=== PATIENT | female | born 1965 | race African-American/Black ===

== ENCOUNTER 2017-06-11 09:07 | Observation (INO) | payer BC ==
[~2017-06-11] VITALS: Ht 154.9 cm; Wt 68.8 kg
[2017-06-11] VITALS (14 sets, daily range): BP systolic 114–138; BP diastolic 77–98; PULSE 70–88; RESP 14–36; Ht 154.9 cm; Wt 68.8 kg
[~2017-06-11 09:07] MED LIST: CEFAZOLIN 1 GM INJ ONE
[2017-06-11] MEDS ORDERED: HYDR25TA6 PO (09:55)
[2017-06-11] MEDS ORDERED: ASPI-664 PO (09:56)
[2017-06-11] MEDS ORDERED: LOSA25TA5 PO (09:56)
[2017-06-11] MEDS ORDERED: CHOL200073 PO (09:57)
[2017-06-11 12:37] LABS: BASOPHILS % 0.5 % (0.0-2.0); EOSINOPHILS # 0.2 10^3/ul (0.0-0.5); EOSINOPHILS % 2.4 % (0.0-7.0); HEMATOCRIT 40.2 % (37.0-47.0); HEMOGLOBIN 13.7 g/dl (12.0-16.0); LYMPHOCYTES # 1.7 10^3/ul (0.8-2.9); LYMPHOCYTES % 26.7 % (15.0-51.0); MEAN CORPUSCULAR HEMOGLOBIN 31.9 pg (29.0-33.0); MEAN CORPUSCULAR HGB CONC 34.1 g/dl (32.0-37.0); MEAN CORPUSCULAR VOLUME 93.5 fl (82.0-101.0); MEAN PLATELET VOLUME 9.9 fl (7.4-10.4); MONOCYTE # 0.5 10^3/ul (0.3-0.9); MONOCYTES % 7.7 % (0.0-11.0); NEUTROPHIL # 3.9 10^3/ul (1.6-7.5); NEUTROPHILS % 62.4 % (39.0-77.0); PLATELET COUNT 321 10^3/UL (140-415); RED CELL DISTRIBUTION WIDTH 12.6 % (11.5-14.5); WHITE BLOOD COUNT 6.2 10^3/ul (4.8-10.8)
--- NOTE | 2017-06-11 12:39 | RADRPT ---
PROCEDURE: Chest x-ray CLINICAL INDICATION: Preop TECHNIQUE: Chest single view COMPARISON: None FINDINGS: The heart is normal in size. The pulmonary vessels are normal in caliber. The lungs are clear. Th e costophrenic angles are sharp. The visualized bony thorax is unremarkable. Incidental note is mad e of 2 wires overlying the right breast IMPRESSION: No acute cardiopulmonary disease. RPTAT: HH .Donald Donato MD, MD Date Time Electronically viewed and signed by .Donald Donato MD, on 06/11/2017 12:39 .W/
[2017-06-11 12:52] LABS: INR 0.93; PARTIAL THROMBOPLASTIN TIME 25.8 Sec (25.0-35.0); PROTIME 12.5 Sec (12.2-14.2)
[2017-06-11 12:53] LABS: ALBUMIN/GLOBULIN RATIO 1.33; BILIRUBIN,INDIRECT 0.6 mg/dl (0-1.1); BILIRUBIN,TOTAL 0.6 mg/dl (0.2-1.3)
[2017-06-11 12:54] LABS: CALCIUM 9.8 mg/dl (8.4-10.2); CREATININE 0.92 mg/dl (0.44-1.00); POTASSIUM 4.9 mmol/L (3.5-5.1)
[2017-06-11] MEDS ORDERED: FENTAnyl 50 MCG/ML VIAL ONE ×2 (13:38→14:43)
[2017-06-11] MEDS ORDERED: MIDAZOLAM 1 MG/ML 2 ML INJ ONE (13:38)
[2017-06-11] MEDS ORDERED: PROPOFOL 20 ML ONE (13:38)
[2017-06-11] MEDS ORDERED: ISOSULFAN BLUE 1% 5 ML INJ SC ONE (13:52)
[2017-06-11] MEDS ORDERED: MEPERIDINE 25 MG INJ IV PRN (14:00)
[2017-06-11] MEDS ORDERED: ONDANSETRON 4 MG INJ IV PRN (14:00)
[2017-06-11] MEDS ORDERED: LABETALOL HCL 20MG INJ IV PRN (14:00)
[2017-06-11] MEDS ORDERED: morphine (1 MG/ML) 10ML SYRINGE IV PRN ×3 (14:00)
[2017-06-11] MEDS ORDERED: EPHEDrine SULFATE 50 MG/5 ML SYG IV PRN (14:00)
[2017-06-11] MEDS ORDERED: hydrALAzine 20 MG INJ IV PRN ×2 (14:00→17:00)
[2017-06-11] MEDS ORDERED: FENTAnyl 50 MCG/ML VIAL IV PRN ×2 (14:00)
[2017-06-11] MEDS ORDERED: DIPHENHYDRAMINE 50 MG INJ IV PRN (14:00)
[2017-06-11] MEDS ORDERED: LABETALOL HCL 20MG INJ ONE (15:23)
[2017-06-11] MEDS ORDERED: DEXTROSE 50% 50 ML SYRINGE ONE (15:23)
[2017-06-11] MEDS ORDERED: METOCLOPRAMIDE 10 MG INJ ONE (15:23)
[2017-06-11] MEDS ORDERED: ONDANSETRON 4 MG INJ ONE (15:23)
[2017-06-11] MEDS ORDERED: DEXAMETHASONE 4 MG/ML 1 ML INJ ONE (15:23)
[2017-06-11] MEDS ORDERED: SUGAMMADEX SODIUM 200 MG/2 ML VIAL IV ONE (15:51)
--- NOTE | 2017-06-11 16:04 | SIPON ---
Date/Time of Note Date/Time of Note DATE: 06/11/17 TIME: 16:01 Operative Report Preoperative Diagnosis Invasive cancer right breast Postoperative Diagnosis Same Operation/Procedure Performed Needle directed right partial mastectomy and axillary dissection utilizing sentinel lymph node technique Surgeon see signature line graphic design assistant Dr Workman Anesthesia: general Estimated blood loss: 50 - 100 ml's Transfusion Required none Specimen Right breast partial mastectomy specimen and axillary contents Grafts/Implants none Complications none IFEANYI MANZANO MD Jun 11, 2017 16:04
[2017-06-11] MEDS: FENTAnyl 50 MCG/ML VIAL IV PRN ×2 (16:07→16:15)
--- NOTE | 2017-06-11 16:32 | HP ---
Date/Time of Note Date/Time of Note DATE: 06/11/17 TIME: 16:28 Assessment/Plan VTE Prophylaxis VTE Prophylaxis Intervention: SCD's Assessment/Plan Assessment/Plan Invasive cancer right breast, status post partial right partial mastectomy and axillary dissection utilizing sentinel lymph node technique by Dr. Mercado. Continue Norcko and Morphine for pain. Hypertension Tobacco dependence Hx Stroke Further recommendations based on clinical course. Plan of care discussed with Dr. Reyna HPI/ROS Admit Date/Time Admit Date/Time Hx of Present Illness The patient is a 52-year-old female with hx of stroke and HTN . Patient underwent screening mammography and ultrasonography which revealed a very suspicious mass approximately 2.5 to 3 cm in diameter in the upper outer quadrant of the right breast. Core biopsy revealed an invasive cancer. Tumor is ER positive, [place] positive and HER-2 negative. Pt was evaluated by Dr Mercado is surgical consultation. Pt is underwent partial right partial mastectomy and axillary dissection utilizing sentinel lymph node technique. Postoperatively was in pain, and patient admitted for further management. PMH/Family/Social Past Medical History Depression, stroke Medical History: hypertension Past Surgical History Status post hysterectomy in 2011 Family History Significant Family History: cancer (Colorectal cancer in patient's mother) Social History Smoking Status: Former smoker Exam/Review of Systems Vital Signs Vitals Vital Signs Date Time Temp Pulse Resp B/P Pulse Ox O2 Delivery O2 Flow Rate FiO2 06/11/17 16:08 97.9 06/11/17 16:00 78 14 136/87 96 Mask Exam Constitutional: alert, oriented Neck: supple Respiratory: normal air movement Cardiovascular: nl pulses Gastrointestinal: non-tender, soft Musculoskeletal: nl extremities to inspection Extremities: normal pulses Skin: nl turgor, other (Status post right partial mastectomy) Labs Result Diagram: 06/11/17 1220 06/11/17 1220 VICKY RAMIREZ Jun 11, 2017 16:32
[2017-06-11] MEDS ORDERED: HYDROCODONE/APAP (10/325) TAB PO ONE (17:00)
--- NOTE | 2017-06-11 17:42 | OPR ---
DATE OF OPERATION: 06/11/2017 PREOPERATIVE DIAGNOSIS: Invasive cancer, right breast. POSTOPERATIVE DIAGNOSIS: Invasive cancer, right breast. PROCEDURE: Needle-directed right partial mastectomy with axillary dissection utilizing sentinel lym ph node technique. ANESTHESIA: General. ANESTHESIOLOGIST: Dr. Daly. SURGEON: Robinson Mercado MD MINK SLICER: Dr. Rafa Flower. INDICATIONS FOR PROCEDURE: The patient is a 52-year-old female. She underwent screening mammograph y and ultrasonography. Found have a very suspicious mass approximately 2.5 to 3 cm in diameter in t he upper outer quadrant of the right breast. Core biopsy revealed an invasive cancer. She was coun seled as to the risks versus benefits of surgery. She consented and was scheduled for surgery. DESCRIPTION OF PROCEDURE: On the morning of surgery, the patient presented to [facility] where she underwent localization of the lesion performed by attending radiologis t, Dr. Leonora Spears. Subsequently, she was brought to the operating theater, placed under general end otracheal anesthesia. The right breast and axillary region was prepped and draped in the usual ster ile fashion. Approximately 4 mL of 1% Lymphazurin blue dye was then injected peritumorally. The br east was gently massaged for approximately 12 minutes. At this point, a 4 to 5 cm incision was made in the right axillary hairline. A significant amount of subcutaneous adipose tissue was dissected with cautery down to the clavipectoral fascia. Clavipectoral fascia was incised, and a dye-stained lymphatic was traced to a sentinel lymph node. It appeared to be enlarged. There were several othe r lymph nodes in this area. Based on this, Dr. Mercado made the decision to proceed with axillary dis section with blunt dissection along the chest wall. The long thoracic nerve was identified and kept out of harm's way. More superiorly, the axillary vein was identified and dissected from medial to lateral. The thoracodorsal neurovascular bundle was identified and dissected throughout its course, kept out of harm's way. Node-bearing tissue between the 2 nerves was then meticulously harvested u sing the LigaSure device. The specimen was removed and sent for permanent pathologic analysis. The wound was irrigated. Minimal bleeding was controlled with cautery. A #10 flat Juan-Luciano drain was then brought through the right mid axillary line, cut to size and laid within the axilla. It w as secured in place with a 2-0 nylon suture in the standard fashion, and the skin incision was reapp roximated with 4-0 Vicryl suture in subcuticular fashion. Attention was then directed to performing the partial mastectomy. A curvilinear incision was made i n the upper outer quadrant of the right breast in the region of the previously placed localization w ires. Subcutaneous tissue was dissected with cautery. Skin edges were elevated with skin hooks and wide circumferential dissection of tissue associated with the mass took place down to the pectorali s major fascia. The mass was then elevated, transected, oriented and sent for radiographic confirma tion of capture. Capture was confirmed. The wound was irrigated. Minimal bleeding was controlled with cautery. Due to the large defect, Dr. Mercado made the decision to place a drain within this wou nd cavity. A #10 flat Juan-Luciano drain was brought through the right mid axillary line. It was cut to size and laid within the wound cavity. It was secured in place with 2-0 nylon suture in the standard fashion, and the skin was then reapproximated with 4-0 Vicryl suture in subcuticular fashio n. Benzoin was applied to both incisions. The patient tolerated the procedure well. The total blo od loss was approximately 100 mL. There were no complications, and the patient was transported in s table condition to recovery room where a circumferential compression dressing was applied. Dictated By: ROBINSON MERCADO MD TL/GENE Conf#: [id number] DID#: [id number] CC: RAFA FLOWER MD;*EndCC*
[2017-06-11] MEDS: HYDROCODONE/APAP (7.5/325) TAB PO PRN (23:52)
[2017-06-12 02:10] VITALS: BP 115/76; RESP 20
[2017-06-12] MEDS: IBUPROFEN 400 MG TAB PO PRN ×3 (03:45→16:28)
[2017-06-12 06:19] LABS: BASOPHILS % 0.1 % (0.0-2.0); EOSINOPHILS % 0.4 % (0.0-7.0); HEMATOCRIT 34.9 % (37.0-47.0); HEMOGLOBIN 11.9 g/dl (12.0-16.0); LYMPHOCYTES % 11.4 % (15.0-51.0); MEAN CORPUSCULAR HEMOGLOBIN 32.6 pg (29.0-33.0); MEAN CORPUSCULAR HGB CONC 34.1 g/dl (32.0-37.0); MEAN CORPUSCULAR VOLUME 95.6 fl (82.0-101.0); MEAN PLATELET VOLUME 10.5 fl (7.4-10.4); MONOCYTE # 0.7 10^3/ul (0.3-0.9); MONOCYTES % 8.5 % (0.0-11.0); NEUTROPHIL # 6.6 10^3/ul (1.6-7.5); NEUTROPHILS % 79.2 % (39.0-77.0); PLATELET COUNT 288 10^3/UL (140-415); RED BLOOD COUNT 3.65 10^6/ul (4.20-5.40); RED CELL DISTRIBUTION WIDTH 12.5 % (11.5-14.5); WHITE BLOOD COUNT 8.3 10^3/ul (4.8-10.8)
[2017-06-12] MEDS: HYDROCODONE/APAP (7.5/325) TAB PO PRN ×2 (06:30→15:25)
[2017-06-12 06:53] LABS: CALCIUM 8.9 mg/dl (8.4-10.2); CREATININE 1.01 mg/dl (0.44-1.00); POTASSIUM 4.9 mmol/L (3.5-5.1)
[2017-06-12 07:37] VITALS: BP 143/91; RESP 20
[2017-06-12] MEDS ORDERED: LOSARTAN 25 MG TAB PO SCH (09:00)
[2017-06-12] MEDS ORDERED: HYDROCHLOROTHIAZIDE 25 MG TAB PO SCH (09:00)
[2017-06-12] MEDS: ALBUTEROL/IPRATROPIUM (NEB) 3 ML AMP HHN PRN ×2 (11:59→16:32)
--- NOTE | 2017-06-12 13:20 | RADRPT ---
Vent Rate: 80 bpm RR Interval: 0 msec [place] Interval: 150 msec QRS Duration: 84 msec QT Interval: 388 msec QTC Interval: 447 msec P-R-T [place]: 41 - 88 - 52 degrees Normal sinus rhythm Normal ECG Electronically Signed By: Karson Martin [id number]
[2017-06-12 13:43] VITALS: BP 144/85; RESP 20
[2017-06-12] MEDS ORDERED: HYDR-906 PO (17:00)
--- NOTE | 2017-06-12 18:45 | PN ---
DATE: 06/12/2017 Postop day #1 status post right partial mastectomy with axillary dissection utilizing sentinel lymph node technique. SUBJECTIVE: No new complaints. OBJECTIVE: VITAL SIGNS: Temperature 98.4, heart rate 74, respirations 20, blood pressure 140/85, saturation 98 % on room air. LABORATORY DATA: WBC 8300 with 79% segmented, hemoglobin 11.9, hematocrit 34.9. Chemistry: Sodium , potassium, BUN, creatinine within normal limits. ASSESSMENT AND PLAN: This is a 52-year-old female who underwent right partial mastectomy with axill carrie dissection. Today is postop day #1. The patient has tolerated diet. The pain is under control . Juan-Luciano drain is draining serosanguineous fluid. In the past 24 hours, total drainage is 4 0 mL. The patient was given the instruction on how to take care of the Juan-Luciano drain. The p atient is going to be discharge today with pain medication to be followed by Dr. Mercado in his office . The patient to call the office and make an appointment for followup. Dictated By: CON FLOWER MD PS/GENE Conf#: [id number] DID#: [id number]
--- NOTE | 2017-06-12 20:37 | DS ---
Date/Time of Note Date/Time of Note DATE: 06/12/17 TIME: 20:37 Discharge Summary Admission/Discharge Info Admit Date/Time Jun 11, 2017 at 17:43 Discharge Date/Time Jun 12, 2017 at 18:10 Patient Condition: Stable Hx of Present Illness The patient is a 52-year-old female with hx of stroke and HTN . Patient underwent screening mammography and ultrasonography which revealed a very suspicious mass approximately 2.5 to 3 cm in diameter in the upper outer quadrant of the right breast. Core biopsy revealed an invasive cancer. Tumor is ER positive, [place] positive and HER-2 negative. Pt was evaluated by Dr Mercado is surgical consultation. Pt is underwent partial right partial mastectomy and axillary dissection utilizing sentinel lymph node technique. Postoperatively was in pain, and patient admitted for further management. Hospital Course Invasive cancer right breast, status post partial right partial mastectomy and axillary dissection utilizing sentinel lymph node technique by Dr. Mercado. Continue Norcko and Morphine for pain. Hypertension Tobacco dependence Hx Stroke Home Meds Active Scripts Hydrocodone/Acetaminophen ([place] 5-325 Tablet) 1 Each Tablet, 1 EACH PO Q6 for PAIN, #30 TAB Prov:JAMESVICKY 06/12/17 Reported Medications Cholecalciferol (Vitamin D3) (VITAMIN D-3) 2,000 Unit Capsule, 2000 UNIT PO DAILY, CAP 06/11/17 Aspirin (Low Dose Aspirin) 81 Mg Tablet., 81 MG PO DAILY, #30 TAB 06/11/17 Losartan Potassium* (Losartan Potassium*) 25 Mg Tablet, 25 MG PO DAILY, TAB 06/11/17 Hydrochlorothiazide* (Hydrochlorothiazide*) 25 Mg Tab, 25 MG PO DAILY, #30 TAB 06/11/17 Follow-up Plan f/up with Dr Mercado next week. Primary Care Provider Not On Staff Doctor Pending Labs Laboratory Tests Test 06/12/17 05:23 06/12/17 05:24 Lab Scanned Report [id number] White Blood Count 8.310^3/ul (4.8-10.8) Red Blood Count 3.6510^6/ul (4.20-5.40) Hemoglobin 11.9g/dl (12.0-16.0) Hematocrit 34.9% (37.0-47.0) Mean Corpuscular Volume 95.6fl (82.0-101.0) Mean Corpuscular Hemoglobin 32.6pg (29.0-33.0) Mean Corpuscular Hemoglobin Concent 34.1g/dl (32.0-37.0) Red Cell Distribution Width 12.5% (11.5-14.5) Platelet Count 55834^3/UL (140-415) Mean Platelet Volume 10.5fl (7.4-10.4) Neutrophils % 79.2% (39.0-77.0) Lymphocytes % 11.4% (15.0-51.0) Monocytes % 8.5% (0.0-11.0) Eosinophils % 0.4% (0.0-7.0) Basophils % 0.1% (0.0-2.0) Nucleated Red Blood Cells % 0.0/100WBC (0.0-0.0) Neutrophils # 6.610^3/ul (1.6-7.5) Lymphocytes # 1.010^3/ul (0.8-2.9) Monocytes # 0.710^3/ul (0.3-0.9) Eosinophils # 0.010^3/ul (0.0-0.5) Basophils # 0.010^3/ul (0.0-0.1) Nucleated Red Blood Cells # 0.010^3/ul (0.0-0.0) Sodium Level 140mmol/L (135-144) Potassium Level 4.9mmol/L (3.5-5.1) Chloride Level 105mmol/L (97-110) Carbon Dioxide Level 27mmol/L (21-31) Anion Gap 13 (8-16) Blood Urea Nitrogen 13mg/dl (7-20) Creatinine 1.01mg/dl (0.44-1.00) Glucose Level 106mg/dl (70-220) Calcium Level 8.9mg/dl (8.4-10.2) VICKY RAMIREZ Jun 12, 2017 20:37
== END 2017-06-12 18:10 | disposition home or self-care (01) ==
LOC: SDS 09:07 → INTOOBSV 17:43 → SDS 17:43 → MS2 17:43
PROVIDERS: ADMIT Surgery Surgical Oncology; ATTEND Surgery Surgical Oncology
DX: C50.411 Malignant neoplasm of upper-outer quadrant of right female breast (principal); Z17.0 Estrogen receptor positive status [ER+]; I10 Essential (primary) hypertension; F17.200 Nicotine dependence, unspecified, uncomplicated; Z86.73 Personal history of transient ischemic attack (TIA), and cerebral infarction without residual deficits; Z88.6 Allergy status to analgesic agent; Z88.5 Allergy status to narcotic agent; Z80.0 Family history of malignant neoplasm of digestive organs
CPT/HCPCS: 19301; 38525; 38900; 71010; 80048; 80053; 84703; 85025; 85610; 85730; 88307; 93005; 94640; J0690; J1100; J2175; J2250; J2270; J2405; J2765; J3010; Z7500; Z7512; Z7610; G0378; Q9968

== ENCOUNTER 2017-07-13 09:28 | Day surgery (SDC) | payer BC ==
[2017-07-13] VITALS (12 sets, daily range): BP systolic 126–143; BP diastolic 70–98; PULSE 89–104; RESP 16–20
[~2017-07-13 09:28] MED LIST changes: +ASPI-664 PO; -CEFAZOLIN 1 GM INJ ONE; +CEFAZOLIN 1 GM/50 ML (PMX) 50 ML IVPB SCH; +CHOL200073 PO; +HYDR-906 PO; +HYDR25TA6 PO; +LOSA25TA5 PO; +SOD CHLORIDE 0.9% 1,000 ML IV SCH
[2017-07-13 10:23] LABS: BASOPHILS % 0.3 % (0.0-2.0); EOSINOPHILS # 0.2 10^3/ul (0.0-0.5); EOSINOPHILS % 3.8 % (0.0-7.0); HEMATOCRIT 41.5 % (37.0-47.0); HEMOGLOBIN 14.5 g/dl (12.0-16.0); LYMPHOCYTES % 32.8 % (15.0-51.0); MEAN CORPUSCULAR HEMOGLOBIN 32.3 pg (29.0-33.0); MEAN CORPUSCULAR HGB CONC 34.9 g/dl (32.0-37.0); MEAN CORPUSCULAR VOLUME 92.4 fl (82.0-101.0); MEAN PLATELET VOLUME 10.2 fl (7.4-10.4); MONOCYTE # 0.6 10^3/ul (0.3-0.9); MONOCYTES % 9.5 % (0.0-11.0); NEUTROPHIL # 3.3 10^3/ul (1.6-7.5); NEUTROPHILS % 53.3 % (39.0-77.0); PLATELET COUNT 303 10^3/UL (140-415); RED BLOOD COUNT 4.49 10^6/ul (4.20-5.40); WHITE BLOOD COUNT 6.1 10^3/ul (4.8-10.8)
--- NOTE | 2017-07-13 10:34 | RADRPT ---
PROCEDURE: XR Chest. CLINICAL INDICATION: Pre operative evaluation. TECHNIQUE: XR CHEST AP PORTABLE COMPARISON: 06/11/2017 FINDINGS: The lungs are clear. No focal opacification is seen. No pneumothorax or pleural effusion is seen. The cardiomediastinal silhouette is unremarkable. The osseous structures are grossly unremarkable. IMPRESSION: No evidence of acute cardiopulmonary disease. RPTAT: JJ .Sam Shankar MD, MD Date Time Electronically viewed and signed by .Sam Shankar MD, on 07/13/2017 10:33 .A/
[2017-07-13 10:52] LABS: ALBUMIN 3.8 g/dl (3.3-4.9); ALBUMIN/GLOBULIN RATIO 1.18; BILIRUBIN,INDIRECT 1.1 mg/dl (0-1.1); BILIRUBIN,TOTAL 1.1 mg/dl (0.2-1.3)
[2017-07-13 10:58] LABS: INR 0.93; PROTIME 12.5 Sec (11.9-14.9)
[2017-07-13 11:09] LABS: CALCIUM 9.9 mg/dl (8.4-10.2); CREATININE 0.95 mg/dl (0.44-1.00); POTASSIUM 3.8 mmol/L (3.5-5.1)
[2017-07-13] MEDS ORDERED: LIDOCAINE 2% (SDV) 5 ML INJ ONE (11:49)
[2017-07-13] MEDS ORDERED: PROPOFOL 20 ML ONE (11:49)
[2017-07-13] MEDS ORDERED: MEPERIDINE 100 MG INJ ONE (11:49)
[2017-07-13] MEDS ORDERED: METOCLOPRAMIDE 10 MG INJ ONE (11:50)
[2017-07-13] MEDS ORDERED: ONDANSETRON 4 MG INJ ONE (11:50)
[2017-07-13 12:02] LABS: PARTIAL THROMBOPLASTIN TIME 24.5 Sec (25.0-35.0)
[2017-07-13] MEDS ORDERED: CEFAZOLIN 1 GM INJ ONE (12:23)
[2017-07-13] MEDS ORDERED: MIDAZOLAM 1 MG/ML 2 ML INJ IV PRN (12:30)
[2017-07-13] MEDS ORDERED: MEPERIDINE 25 MG INJ IV PRN (12:30)
[2017-07-13] MEDS ORDERED: LABETALOL HCL 20MG INJ IV PRN (12:30)
[2017-07-13] MEDS ORDERED: OXYCODONE/ACETAMINOPHEN (5/325) TAB PO PRN ×2 (12:30)
[2017-07-13] MEDS ORDERED: DIPHENHYDRAMINE 50 MG INJ IV PRN (12:30)
[2017-07-13] MEDS ORDERED: METOCLOPRAMIDE 10 MG INJ IV PRN (12:30)
[2017-07-13] MEDS ORDERED: ONDANSETRON 4 MG INJ IV PRN (12:30)
[2017-07-13] MEDS ORDERED: EPHEDrine SULFATE 50 MG/5 ML SYG IV PRN (12:30)
[2017-07-13] MEDS ORDERED: HYDROmorphONE (0.2 MG/ML) 10ML SYG IV PRN ×2 (12:30)
[2017-07-13] MEDS ORDERED: hydrALAzine 20 MG INJ IV PRN (12:30)
[2017-07-13] MEDS ORDERED: FENTAnyl 50 MCG/ML VIAL IV PRN ×3 (12:30)
[2017-07-13] MEDS ORDERED: HYDROCODONE/APAP (7.5/325) TAB PO PRN (13:00)
--- NOTE | 2017-07-13 13:00 | SIPON ---
Date/Time of Note Date/Time of Note DATE: 07/13/17 TIME: 12:59 Operative Report Preoperative Diagnosis History of right breast cancer need for right reexcision partial mastectomy Postoperative Diagnosis Same Operation/Procedure Performed Right reexcision partial mastectomy Surgeon see signature line assistant operator Dr Workman Anesthesia: general Estimated blood loss: 10 - 50 ml's Transfusion Required none Specimen Right reexcision partial mastectomy specimen Grafts/Implants none Complications none IFEANYI MANZANO MD Jul 13, 2017 13:00
--- NOTE | 2017-07-13 13:23 | OPR ---
DATE OF OPERATION: 07/13/2017 PREOPERATIVE DIAGNOSIS: History of an invasive cancer, right breast, need for right reexcision part ial mastectomy. POSTOPERATIVE DIAGNOSIS: History of an invasive cancer, right breast, need for right reexcision par tial mastectomy. OPERATION PERFORMED: Right reexcision partial mastectomy. ANESTHESIA: General. ANESTHESIOLOGIST: Sher Donovan MD SURGEON: Robinson Mercado MD ELECTRICAL INSTALLATION INSPECTOR: Rafa Workman MD INDICATIONS FOR PROCEDURE: The patient is a 52-year-old female I have previously treated for invasi ve cancer of the right breast with partial mastectomy and axillary dissection. However, her final p athology revealed inadequate anterior superior margin, and reexcision was recommended. She consente d and was scheduled for surgery. DESCRIPTION OF PROCEDURE: The patient was brought to the operating theater, placed under general an esthesia. The right breast was prepped and draped in the usual sterile fashion. The previous surgi rosario incisional scar in the upper outer quadrant was reincised with a 15 blade scalpel. Subcutaneous tissue was dissected with cautery until the biopsy cavity was entered. Skin hooks were then utiliz ed to elevate the skin edges and 180-degree resection of the anterior superior portion of the biopsy cavity took place using cautery. Specimen was transected, removed, oriented and sent for permanent pathologic analysis. Minimal bleeding was controlled with cautery. An incision was then made to p lace a #10 flat Juan-Luciano drain into the wound cavity. This was done by placing it through the right mid axillary line. It was cut to size, laid within the wound cavity and secured in place with a 2-0 nylon suture in the standard fashion. The skin was then reapproximated with 4-0 PDS suture i n subcuticular fashion, and a circumferential compression wrap was then applied. Patient tolerated the procedure well. The estimated blood loss was approximately 10 mL. There were no complications, and the patient was transported in stable condition to the recovery room, where a circumferential c ompression dressing was applied. Dictated By: ROBINSON BUTLER/GENE Conf#: [id number] DID#: [id number]
[2017-07-13] MEDS: HYDROmorphONE (0.2 MG/ML) 10ML SYG IV PRN ×3 (13:29→13:50)
--- NOTE | 2017-07-14 07:07 | RADRPT ---
Vent Rate: 90 bpm RR Interval: 0 msec [place] Interval: 148 msec QRS Duration: 80 msec QT Interval: 378 msec QTC Interval: 462 msec P-R-T [place]: 51 - 71 - 55 degrees Normal sinus rhythm Normal ECG Electronically Signed By: Arpit Burch [id number]
== END 2017-07-13 17:14 | disposition home or self-care (01) ==
LOC: SDS 09:28
PROVIDERS: ATTEND Surgery Surgical Oncology
DX: C50.911 Malignant neoplasm of unspecified site of right female breast (principal); I10 Essential (primary) hypertension; F32.9 Major depressive disorder, single episode, unspecified
CPT/HCPCS: 19301; 71010; 80053; 84703; 85025; 85610; 85730; 88307; 93005; J0690; J1170; J2175; J2405; J2765; Z7512; Z7610